=== PATIENT | female | born 1955 | race Caucasian/White ===

== ENCOUNTER 2017-12-30 10:34 | Outpatient (REF) | payer BC, SELFPAY ==
[2017-12-30 21:20] LABS: Anion Gap 8.1 mmol/L (3-11); BUN 16 mg/dL (7-18); CO2 29.9 mmol/L (21.0-32.0); CREATININE 0.67 mg/dL (0.55-1.02); Calcium 9.3 mg/dL (8.5-10.1); Chloride 102 mmol/L (98-107); Cholesterol 215 mg/dL (50-200); Glucose 83 mg/dL (70-100); HDL Cholesterol 93 mg/dL (40-60); LDL CHOLESTEROL 110 mg/dL (<100); Sodium 140 mmol/L (136-145); Triglyceride 74 mg/dL (30-150)
== END 2017-12-30 10:54 ==
LOC: NCHCN 10:34
PROVIDERS: PCP Internal Medicine; Visit Provider Family Medicine
DX: Z00.00 Encounter for general adult medical examination without abnormal findings (principal); Z13.220 Encounter for screening for lipoid disorders; Z13.228 Encounter for screening for other metabolic disorders
CPT/HCPCS: 80048; 80061; 83721

== ENCOUNTER 2018-01-19 00:29 | Outpatient (CLI) | payer BC, SELFPAY ==
--- NOTE | 2018-01-19 07:52 | DI.MAMMO_ITS ---
SYMPTOM/DIAGNOSIS: SCREENING, YEARLY. Z12.31 BILATERAL SCREENING MAMMOGRAM: Mammograms were interpreted according to the usual protocol including computer analysis with CAD system, tomosynthesis and C view imaging. Comparison is made with exams from 2014 through 2016. The breasts are composed of heterogeneously dense fibroglandular tissue, breast density Category C. No suspicious masses or suspicious microcalcifications are seen. There has been no significant change. IMPRESSION: Category 1-C, negative mammogram. Yearly screening mammography is recommended. [facility] ASSESSMENT OF FINDINGS: Negative. Category 1. Patient will receive a letter notifying them of these results. Bi-RADS category C. The breasts are heterogeneously dense, which may obscure small masses.
== END 2018-01-19 00:49 ==
PROVIDERS: PCP Family Medicine; Visit Provider Family Medicine
DX: Z12.31 Encounter for screening mammogram for malignant neoplasm of breast (principal)
CPT/HCPCS: 77063; 77067

== ENCOUNTER 2019-08-10 01:53 | Outpatient (CLI) | payer BC, SELFPAY ==
--- NOTE | 2019-08-10 | DI.MAMMO_ITS ---
EXAM: MAMMO SCREENING CLINICAL HISTORY: YEARLY, SCREENING, Z12.31 TECHNIQUE: Mammograms were interpreted according to the usual protocol including computer analysis w [employer] system, tomosynthesis and C-view imaging. COMPARISON: FINDINGS: The breasts are heterogeneously dense. No dominant mass or clumped microcalcification is identified in either breast. The current examination is compared with previous examinations including January 2018 and there has been no gross interval change in appearance in comparison with the prior studies. IMPRESSION: No specific evidence of malignancy at this time. Routine screening examinations are suggested at yea rly intervals in this age group according to the ACS ACR guidelines. BI-RADS Category 1 - Negative Breast Density - Category C - Heterogeneously dense
== END 2019-08-10 02:13 ==
PROVIDERS: PCP Family Medicine; Visit Provider Family Medicine
DX: Z12.31 Encounter for screening mammogram for malignant neoplasm of breast (principal)
CPT/HCPCS: 77063; 77067

== ENCOUNTER 2020-06-11 21:24 | Outpatient (REF) | payer BC, SELFPAY ==
[2020-06-11 20:05] LABS: Absolute Basophil Count 0.03 10^3/uL (0.0-0.2); Absolute Eosinophil Count 0.05 10^3/uL (0.0-0.7); Absolute Lymphocyte Count 1.36 10^3/uL (1.2-3.4); Absolute Monocyte Count 0.38 10^3/uL (0.1-0.8); Absolute Neutrophil Count 1.35 10^3/uL (1.2-6.7); Basophils % 0.9; Eosinophils % 1.6; HCT 35.6 % (36.0-46.0); HGB 11.6 g/dL (11.2-15.7); Lymphocytes % 42.9; MCH 28.9 pg (27.0-33.0); MCHC 32.6 % (32.0-36.0); MCV 88.8 fL (80-95); MPV 11.1 fL (8.0-11.0); Neutrophils % 42.6; Nucleated RBC 0 %; Platelet Count 231 10^3/uL (130-400); RBC 4.01 10^6/uL (3.93-5.22); RDW 12.7 % (11.7-14.6); RDW-SD 41.7 fL; WBC 3.17 10^3/uL (4.4-10.8)
[2020-06-11 20:21] LABS: ALT 27 U/L (14-59); AST 19 U/L (15-37); Alkaline Phosphatase 115 U/L (46-116); Anion Gap 6.9 mmol/L (3-11); BUN 9 mg/dL (7-18); Bilirubin, Total 0.4 mg/dL (0.2-1.0); CO2 29.1 mmol/L (21.0-32.0); CREATININE 0.6 mg/dL (0.55-1.02); Calcium 9.4 mg/dL (8.5-10.1); Chloride 102 mmol/L (98-107); Glucose 85 mg/dL (74-106); Potassium 4.1 mmol/L (3.5-5.1); Sodium 138 mmol/L (136-145); TSH (W/Ref FT4) 1.54 uIU/mL (0.36-3.74); Total Protein 7.1 g/dL (6.4-8.2)
[2020-06-11 20:32] LABS: D-Dimer 415 ng/mlFEU (<500)
== END 2020-06-11 21:25 | disposition home or self-care (01) ==
LOC: NCHCN 21:24
PROVIDERS: PCP Family Medicine; Visit Provider Nurse Practitioner Family
DX: R06.09 Other forms of dyspnea (principal)
CPT/HCPCS: 80053; 84443; 85025; 85379

== ENCOUNTER 2021-03-24 16:02 | Outpatient (REF) | payer MEDICARE, BC, SELFPAY ==
[2021-03-24 17:57] LABS: Anion Gap 8.6 mmol/L (3-11); BUN 22 mg/dL (7-18); CO2 27.4 mmol/L (21.0-32.0); CREATININE 0.7 mg/dL (0.55-1.02); Calcium 8.8 mg/dL (8.5-10.1); Calculated LDL 110 mg/dL (<100); Chloride 105 mmol/L (98-107); Cholesterol 216 mg/dL (<200); Glucose 79 mg/dL (74-106); HDL Cholesterol 95 mg/dL (40-60); Potassium 4.2 mmol/L (3.5-5.1); Sodium 141 mmol/L (136-145); Triglyceride 56 mg/dL (<150)
== END 2021-03-24 16:03 | disposition home or self-care (01) ==
LOC: NCHCN 16:02
PROVIDERS: PCP Family Medicine; Visit Provider Family Medicine
DX: Z00.00 Encounter for general adult medical examination without abnormal findings (principal); Z13.220 Encounter for screening for lipoid disorders
CPT/HCPCS: 80048; 80061

== ENCOUNTER 2021-04-11 02:55 | Outpatient (CLI) | payer MEDICARE, BC, SELFPAY ==
--- NOTE | 2021-04-11 | DI.DEXA_ITS ---
Exam(s) XR DEXA BONE DENSITY W/WO PAULINO EXAM: XR DEXA BONE DENSITY W/WO PAULINO CLINICAL HISTORY: SCREENING FOR OSTEOPOROSIS IN POSTMENOPAUSAL WOMAN,Z78.00,Z00.00,PREVENTATI TECHNIQUE: Routine DEXA evaluation of the lumbar spine, hip, or forearm. COMPARISON: No exams were available for comparison FINDINGS: Performed on a Hologic unit. Lateral image: No compression fracture evident. Lumbar Spine total T-score: -5.3 Hip total T-score:-3.2 Independent reading at the level of the femoral neck yields at T-score of -3.2. Forearm total T-score: -4.7 IMPRESSION: Bone mineral density measures in the osteoporosis range. Fracture risk is high. Note: Any spine fracture indicates 5x risk for subsequent spine fracture and 2x risk for subsequent h ip fracture. World Health Organization criteria for BMD interpretation classify patients: Normal...... T- Score at or above -1.0 Osteopenic... T- Score between -1.0 and -2.5 Osteoporosis... T-Score at or below -2.5
--- NOTE | 2021-04-11 | DI.MAMMO_ITS ---
Exam(s) MAMMO SCREENING EXAM: MAMMO SCREENING CLINICAL HISTORY: SCREENING, [facility], Z00.00,Z12.31. TECHNIQUE: Bilateral full field digital CC and MLO mammographic images were obtained with 3D tomosyn thesis and utilizing computer aided detection (CAD). COMPARISON: Prior mammograms were reviewed, the most recent being July 2019. FINDINGS: Fibroglandular tissue pattern is again noted be moderately dense, this somewhat decreasing the sensit ivity of the mammogram for finding hidden underlying lesions. There are no CAD designations. Laterally in the left breast there is benign-appearing well-defined oval nodular density again noted, measuring 6 by 4 millimeters and located 5-6 cm in from the nipple. No new spiculated masses nor malignant-appearing microcalcification in either breast. There is no significant architectural distortion nor skin thickening-retraction. IMPRESSION: Dense bilateral fibroglandular tissue. Stable benign appearing finding. No radiographic evidence of malignancy BI-RADS Category 2 - Benign Findings Breast Density - Category C - Heterogeneously dense Breast density Category C or D implies that the patient has dense breast tissue. Dense breast tissue can make it harder to find cancer on a mammogram. Dense breast tissue is also associated with an incr eased risk of breast cancer. This information about the result of the mammogram report was provided to the patient to raise their awareness. Use this report when you speak with the patient about their risks for breast cancer, which includes their family history. At that time, you may recommend additional screening tests (Ultrasoun d or MRI) as these tests may add significant information. A negative radiographic report should not delay biopsy if a dominant or clinically suspicious mass is present. Up to ten percent of cancers are not identified on mammography. A negative report may reinforce clinical impression. Adenosis and dense breasts may obscure an underlying neoplasm. False positive reports average 6 to 10%. Patient will receive a letter notifying them of these results.
== END 2021-04-11 03:15 ==
PROVIDERS: PCP Family Medicine; Visit Provider Family Medicine
DX: Z12.31 Encounter for screening mammogram for malignant neoplasm of breast (principal); N60.82 Other benign mammary dysplasias of left breast; M81.0 Age-related osteoporosis without current pathological fracture; Z78.0 Asymptomatic menopausal state
CPT/HCPCS: 77063; 77067; 77080

== ENCOUNTER 2021-04-24 18:07 | Outpatient (REF) | payer MEDICARE, BC, SELFPAY ==
[2021-04-24 21:29] LABS: Vitamin D 25 Total 84.6 ng/mL (30-100)
== END 2021-04-24 18:08 | disposition home or self-care (01) ==
LOC: NCHCN 18:07
PROVIDERS: PCP Family Medicine; Visit Provider Family Medicine
DX: M81.0 Age-related osteoporosis without current pathological fracture (principal)
CPT/HCPCS: 82306

== ENCOUNTER 2021-04-30 20:45 | Outpatient (REF) | payer MEDICARE, BC, SELFPAY | END 2021-04-30 20:46 | disposition home or self-care (01) | LOC: NCHCN 20:45 | PROVIDERS: PCP Family Medicine; Visit Provider Internal Medicine | DX: R30.0 Dysuria (principal) | CPT/HCPCS: 87086 ==

== ENCOUNTER 2021-11-05 02:56 | Outpatient (CLI) | payer MEDICARE, BC, SELFPAY ==
[2021-11-05 09:04] LABS: ALT 30 U/L (14-59); AST 20 U/L (15-37); Alkaline Phosphatase 119 U/L (46-116); Anion Gap 6.4 mmol/L (3-11); BUN 11 mg/dL (7-18); Bilirubin, Total 0.5 mg/dL (0.2-1.0); CO2 30.6 mmol/L (21.0-32.0); CREATININE 0.7 mg/dL (0.55-1.02); Calcium 9.4 mg/dL (8.5-10.1); Chloride 100 mmol/L (98-107); Estimated GFR 94.73 (mL/min/1.73m2); Glucose 86 mg/dL (74-106); PHOSPHORUS 4.6 mg/dL (2.6-4.7); Sodium 137 mmol/L (136-145); Total Protein 7.9 g/dL (6.4-8.2)
[2021-11-06 05:46] LABS: Vitamin D 25 Total 74.3 ng/mL (30-100)
[2021-11-06 11:14] LABS: Parathyroid Hormone,Intact 30 pg/mL (19-88)
[2021-11-10 12:22] LABS: IgA 232 mg/dL (85-499); Interpretation (See Note); Tissue Transglutaminase IgA <1.2 U/mL (<4.0)
== END 2021-11-05 02:57 | disposition home or self-care (01) ==
LOC: LBO 02:56
PROVIDERS: PCP Family Medicine; Visit Provider Internal Medicine
DX: M81.0 Age-related osteoporosis without current pathological fracture (principal)
CPT/HCPCS: 36415; 80053; 82306; 82784; 83516; 83970; 84100

== ENCOUNTER 2021-11-07 12:06 | Outpatient (REF) | payer MEDICARE, BC, SELFPAY ==
[2021-11-07 13:00] LABS: Creatinine,24hr Ur 0.62 g/24hr (0.60-1.80); Total Volume 1900 ml
[2021-11-08 09:21] LABS: Calcium Urine 6.7 mg/dL (See Note); Calcium Urine 24 hr 127 mg/24hrs (100-300); Timed Urine Volume 1900 mL
== END 2021-11-07 12:07 | disposition home or self-care (01) ==
LOC: LBN 12:06
PROVIDERS: PCP Family Medicine; Visit Provider Internal Medicine
DX: M81.0 Age-related osteoporosis without current pathological fracture (principal)
CPT/HCPCS: 81050; 82340; 82570

== ENCOUNTER 2022-03-27 21:13 | Emergency (ER) | payer MEDICARE, BC, SELFPAY ==
--- NOTE | 2022-03-27 21:15 | DI.RAD_ITS ---
Exam(s) XR HUMERUS RT EXAM: XR HUMERUS RT CLINICAL HISTORY: pain s/p fall. TECHNIQUE: 2D digital imaging was performed. COMPARISON: No exams were available for comparison FINDINGS: Two views: No evidence of fracture nor dislocation of the humerus. No osseous lesions. No radiopaque foreign b marysol. IMPRESSION: No significant findings on these two views of the right humerus. DATA REPOSITORY: RADIATION DOSE DELIVERED:
[2022-03-27 21:16] VITALS: BP 150/79; PULSE 61; RESP 15; TEMP 36.5; O2SAT 98
--- NOTE | 2022-03-27 21:24 | DI.RAD_ITS ---
Exam(s) XR FOREARM RT EXAM: XR FOREARM RT CLINICAL HISTORY: pain s/p fall. TECHNIQUE: 2D digital imaging was performed. COMPARISON: CR,XR XR HUMERUS RT from 03/27/2022 FINDINGS: Two views: There is a nondisplaced fracture of the distal radius. No fractures more proximally and no fractures in the ulna evident. No obvious elbow joint effusion. IMPRESSION: Distal radius fracture. DATA REPOSITORY: RADIATION DOSE DELIVERED:
--- NOTE | 2022-03-27 21:24 | DI.RAD_ITS ---
Exam(s) XR WRIST RT COMPLETE EXAM: XR WRIST RT COMPLETE CLINICAL HISTORY: pain s/p fall. TECHNIQUE: 2D digital imaging was performed. COMPARISON: No exams were available for comparison FINDINGS: 3 views There is a nondisplaced transverse fracture in the distal radius. No displacement. No angulation. No significant ulnar variance. No obvious fracture of the ulnar styloid. No scaphoid fracture seen. Scapholunate distance normal. Incidentally noted are 2 small adjacent densities which are adjacent to the lateral aspect of the rad ial styloid, not adjacent to the fracture site. Possibly significant. Cannot exclude foreign body. IMPRESSION: Nondisplaced fracture of the distal radius, as described above. Other small adjacent osteophytic densities against the radial styloid as described above. DATA REPOSITORY: RADIATION DOSE DELIVERED:
--- NOTE | 2022-03-27 21:25 | W.ED.GENAD ---
Discharge Plan Disposition Patient Disposition: Home Condition: Stable Discharge Details Clinical Impression: Fracture of right radius Primary Care Provider: Hollie Brizuela ED Provider: Bridger Lopez Home Meds and New Rx's Prescriptions: Continued Fish Oil 1 EACH capsule 1 ea PO ASTRAGALUS 470 MG capsule 470 mg PO multivitamin [Daily Multi-Vitamin] 1 EACH tablet 1 ea PO cholecalciferol (vitamin D3) [Vitamin D3] 2,000 UNIT capsule 2,000 unit PO DAILY Algae Based Calcium 333.33 mg-6.67 mcg-32 mg Tablet 2 tab PO BID Discharge Instructions Instructions: Arm Fracture in Adults (ED) Additional Instructions: you have a nondisplaced broken bone in the radius bone near your wrist call orthopedics Wednesday to arrange follow up return to the emergency department if you feel more ill or have severe worsening of your pain Referrals: Holden Angulo MD [ [facility] STAFF PHYSICIAN] - Medical Decision Making 66 yo female with hx of osteoporosis comes in after she fell hurting her right arm. [place] ice slide. While she was about to sit her legs slipped out from under her and she landed on her buttocks and her right arm was outstretched to brace herself. She denies hitting her head or loc and no preceding symptoms to the fall. She has no head pain, neck pain, chest pain, abdomen pain, back pain. She has some pain in the right wrist,rightforearm and right mid humerus without a visible or palpable deformity. She has normal rom of all joints of the arm, intact sensation and pulses. No tenderness in the hand, mild tenderness of the radial surfiace of the wrist, mid forearm and mid humerus. No tenderness in the shoulder nor elbow. Suspect contusion but will xray the humerus, forearm and wrist. imaging shows transverse nondisplaced distal radius fracture. They note radiodensities as well and note correlate with any concern for foregin bodies, there is no break in the skin so suspect soft tissue calcification. She is stable, placed in universal splint and will refer to orthopedics. Return precautions given Differential Diagnosis Differential Diagnosis: contusion, fracture Imaging Data Radiologic Study: Attestation: I personally reviewed and interpreted this imaging study as follows: Imaging: X-Ray Radiologist's impression: IMPRESSION: 1. Distal right radial fracture. 2. In the soft tissues adjacent to the distal right radius, series 3, image 1, two 1.5 mm radiodensities are identified which may represent soft tissue calcifications but should be correlated with any concern for foreign body. Bony fragments are thought to be less likely as they are not adjacent to the fracture line. Radiologic Study #2: Attestation: I personally reviewed and interpreted this imaging study as follows: Imaging: X-Ray Radiologist's impression: no acute findings humerus xray Radiologic Study #3: Attestation: I personally reviewed and interpreted this imaging study as follows: Imaging: X-Ray Radiologist's impression: radius fracture on forearm xray HPI General Mode of arrival: ambulatory. Date/Time Provider Initiated Documentation: 03/27/22 21:18. Limitations to Documentation: no limitations. Information obtained by: patient. History of Present Illness 66 year old F presents to the emergency department with the chief complaint of right arm pain, described as moderate, Quality is described as aching, and is localized to the left and upper extremity. Patient reports no radiation. Patient started experiencing this hour(s) (1) and it has been constant. Rest improves symptom(s), Movement worsens symptoms . Patient notes no other symptoms.. Patient did receive the following treatments prior to arrival, none Related Data Home Medications Medication Instructions Recorded Confirmed Astragalus 470 mg PO 09/27/12 multivitamin (Daily Multi-Vitamin 1 ea PO 09/27/12 tablet) omega-3 fatty acids-fish oil 300 1 ea PO 09/27/12 mg-500 mg capsule (Fish Oil) cholecalciferol (vitamin D3) 50 2,000 unit PO DAILY 10/04/13 03/27/22 mcg (2,000 unit) capsule (Vitamin D3) calcium 333.33 mg-vit D3 6.67 2 tab PO BID 03/27/22 03/27/22 mcg-magnes 32 mg-vit K2-min-herb tablet (Algae Based Calcium) Allergies Allergy/AdvReac Type Severity Reaction Status Date / Time erythromycin base Allergy Intermediate rash,vomiti Unverified 03/27/22 21:20 ng General Stated Complaint: Orthopedic KENYA: 4 Review of Systems All systems reviewed & are unremarkable except as noted in HPI and below Constitutional Constitutional: Denies chills, Denies fever(s) and Denies weakness Cardiovascular Cardiovascular: Denies chest pain and Denies dyspnea Respiratory Respiratory: Denies cough and Denies dyspnea Gastrointestinal Gastrointestinal: Denies abdominal pain, Denies nausea and Denies vomiting Neurologic Neurologic: Denies weakness PFSH All Active Problems (Updated 03/27/22 @ 22:28 by Bridger Lopez MD) Fracture of right radius (Acute) Medical History (Updated 03/27/22 @ 22:28 by Bridger Lopez MD) Anemia during pregnancies Blood clots 1979 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 Surgical History (Updated 12/01/17 @ 14:34 by [employer] 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 Family History (Updated 07/09/13 @ 21:16 by ) Other Diabetes Heart disease Hyperlipidemia Osteoporosis Social History Smoking/Tobacco Use Status: Never Smoking risk assessment performed?: Yes Substance use type: does not use Exam Const General: no acute distress Orientation: alert HENMT Head: normal to inspection Ears: external ears normal General nose exam: external nose normal Mouth: moist mucous membranes Eyes General: appearance normal, both eyes and all related structures Neck Neck: normal visual inspection Resp Effort & Inspection: normal respiratory effort and able to speak in complete sentences Cardio Rate: regular rate Skin General skin exam: no rashes or lesions noted Neuro General: patient alert and patient oriented x3 Extrem General: normal to inspection and capillary refill normal Psych Mental Status: mental status grossly normal Course Vital Signs Vital signs: Vital Signs Temperature 36.5 C 03/27/22 21:16 Pulse 61 03/27/22 21:16 Respiratory Rate 15 03/27/22 21:16 Blood Pressure 150/79 H 03/27/22 21:16 Pulse Oximetry 98 03/27/22 21:16 Temperature 36.5 C 03/27/22 21:16 Temperature Source Oral 03/27/22 21:16 Pulse 61 03/27/22 21:16 Respiratory Rate 15 03/27/22 21:16 Respiratory Effort Normal 03/27/22 21:16 Blood Pressure 150/79 H 03/27/22 21:16 Blood Pressure Position Sitting 03/27/22 21:16 Pulse Oximetry 98 03/27/22 21:16 Oxygen Delivery Method Room Air 03/27/22 21:16 Oxygen Flow Rate 0 03/27/22 21:16 Pain Level 8 03/27/22 21:16
[2022-03-27] MEDS: Acetaminophen 325 MG TAB 650 MG PO (21:29)
--- NOTE | 2022-03-27 22:17 | DI.VRAD_ITS ---
PROCEDURE INFORMATION: Exam: XR Right Humerus Exam date and time: 03/27/2022 9:45 PM Age: 66 years old Clinical indication: Injury or trauma; Fall; Blunt trauma (contusions or hematomas); Arm, upper; Right TECHNIQUE: Imaging protocol: Radiologic exam of the Right humerus. Views: 2 or more views. COMPARISON: No relevant prior studies available. FINDINGS: Bones/joints: No acute fracture identified. Soft tissues: No unusual soft tissue calcifications seen. IMPRESSION: 1. No acute fracture identified, right humerus. If symptoms persist or remain concerning, consider follow-up imaging in 7 days or alternative imaging modalities. Dictated and Authenticated by: Corinna Ventura MD. Ordering:VIMAL Sparks MD
--- NOTE | 2022-03-27 22:18 | DI.VRAD_ITS ---
PROCEDURE INFORMATION: Exam: XR Right Forearm Exam date and time: 03/27/2022 9:52 PM Age: 66 years old Clinical indication: Injury or trauma; Fall; Blunt trauma (contusions or hematomas); Arm, upper; Right TECHNIQUE: Imaging protocol: Radiologic exam of the Right forearm. Views: 2 views. COMPARISON: No relevant prior studies available. FINDINGS: Bones/joints: There is a transverse fracture of the distal right radius. Soft tissues: No unusual soft tissue calcifications. IMPRESSION: 1. Fracture of the distal right radius. Dictated and Authenticated by: Corinna Ventura MD. Ordering:VIMAL Sparks MD
--- NOTE | 2022-03-27 22:20 | DI.VRAD_ITS ---
PROCEDURE INFORMATION: Exam: XR Right Wrist Exam date and time: 03/27/2022 9:53 PM Age: 66 years old Clinical indication: Injury or trauma; Fall; Blunt trauma (contusions or hematomas); Wrist; Right TECHNIQUE: Imaging protocol: Radiologic exam of the Right wrist. Views: 3 or more views. COMPARISON: CR XR FOREARM RT 03/27/2022 9:52 PM FINDINGS: Bones/joints: There is a transverse fracture of the distal right radius. Soft tissues: In the soft tissues adjacent to the distal right radius, series 3, image 1, two 1.5 mm radiodensities are identified which may represent soft tissue calcifications but should be correlated with any concern for foreign body. Bony fragments are thought to be less likely as they are not adjacent to the fracture line. IMPRESSION: 1. Distal right radial fracture. 2. In the soft tissues adjacent to the distal right radius, series 3, image 1, two 1.5 mm radiodensities are identified which may represent soft tissue calcifications but should be correlated with any concern for foreign body. Bony fragments are thought to be less likely as they are not adjacent to the fracture line. Dictated and Authenticated by: Corinna Ventura MD. Ordering:VIMAL Sparks MD
[2022-03-27 22:46] VITALS: BP 122/75; PULSE 65; RESP 20; O2SAT 96
== END 2022-03-27 22:47 | disposition home or self-care (01) ==
PROVIDERS: Emergency Provider Emergency Medicine; PCP Family Medicine
DX: S52.501A Unspecified fracture of the lower end of right radius, initial encounter for closed fracture (principal); W00.0XXA Fall on same level due to ice and snow, initial encounter
CPT/HCPCS: 99284; 73060; 73090; 73110; 99282

== ENCOUNTER 2022-04-13 10:22 | Outpatient (CLI) | payer MEDICARE, BC, SELFPAY ==
--- NOTE | 2022-04-13 08:45 | DI.RAD_ITS ---
Exam(s) XR WRIST RT LIMITED EXAM: XR WRIST RT LIMITED CLINICAL HISTORY: f/u R DISTAL RADIUS FX. TECHNIQUE: 2D digital imaging was performed of the right wrist. Two views were obtained. Scaphoid, PA, lateral and oblique views were obtained. COMPARISON: CR,XR XR WRIST RT COMPLETE from 03/27/2022 FINDINGS: BONES: There is again seen a fracture of the distal metaphysis of the right radius. Since the prior examination, fracture has undergone increased impaction. No bony destructive lesion is seen. JOINTS: The carpal bones are normally aligned. SOFT TISSUE: Normal. IMPRESSION: Increased impaction of the distal right metaphyseal radial fracture. DATA REPOSITORY: RADIATION DOSE DELIVERED:
== END 2022-04-13 10:23 | disposition home or self-care (01) ==
LOC: DIORS 10:22
PROVIDERS: PCP Family Medicine; Referring Provider Student in an Organized Health Care Education/Training Program; Visit Provider Physician Assistant
DX: S52.501A Unspecified fracture of the lower end of right radius, initial encounter for closed fracture (principal); W00.0XXA Fall on same level due to ice and snow, initial encounter
CPT/HCPCS: 99213; 73100

== ENCOUNTER 2022-04-16 06:09 | Day surgery (SDC) | payer MEDICARE, BC, SELFPAY ==
[2022-04-16] VITALS (9 sets, daily range): BP systolic 100–133; BP diastolic 60–86; PULSE 64–82; RESP 11–16; TEMP 36–36.5; O2SAT 95–98; BMI 19.4
--- NOTE | 2022-04-16 06:00 | W.PREOPHP ---
Assessment and Plan Assessment and plan (1) Fracture of right distal radius: Status: Acute Assessment and plan: Alicja is a 67-year-old active female who has lost reduction of her distal radius fracture. She has lost some the height but more importantly she has lost significant angulation on the lateral view. Dorsal angulation greater than 20 degrees has been shown with poor functional outcomes. 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 This was reviewed in detail by Kush San PA-C. I also reviewed this with her over the phone as well as this morning. My recommendation would be for operative fixation to improve the position of the fracture fragments and secured them with plate and screws. Repeat closed reduction is possible. However, being 3 weeks out, the likelihood of success is quite low. I reviewed the technical features of operative fixation of the right wrist fracture. I discussed the potential risk to include bleeding, infection, pain, stiffness, damage to nerves and vessels, damage to muscle and tendons, hardware prominence, hardware failure, tendon rupture. Despite these risks, she elects to proceed. History of Present Illness Narrative: Alicja is an active 67-year-old who unfortunately had a slip and fall while sliding down a hill. He landed onto an outstretched right hand. She was seen in the emergency department and diagnosed with a distal radius fracture which was relatively nondisplaced. She was placed into a removable splint at the time. She reports some pain within the forearm but very minimal pain at the level of the wrist. However, she presented to the office for a 2-week follow-up which showed significant impaction and loss of radial height as well as dorsal angulation. I was contacted by Kush San PA-C, to review the case and I recommended operative fixation of this fracture, especially given her hand dominance and active lifestyle. She has had controlled pain with ibuprofen. She denies any new trauma. She has no numbness or tingling. She has no chest pain or shortness of breath. She has no active medical issues. 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 Family History Other Diabetes Heart disease Hyperlipidemia Osteoporosis Social History Smoking/Tobacco Use Status: Never Smoking risk assessment performed?: Yes Alcohol Intake: current Alcohol Intake frequency: a few times a month Alcohol type: wine Substance use type: does not use Do you feel safe at home: Yes Do you feel safe in your relationship?: Yes Meds Allergies and Home Medications Allergies Allergy/AdvReac Type Severity Reaction Status Date / Time erythromycin base Allergy Intermediate rash,vomiti Unverified 04/16/22 06:33 ng Home Medications Medication Instructions Recorded Confirmed Type Astragalus 470 mg PO DAILY 09/27/12 04/16/22 History multivitamin (Daily Multi-Vitamin 1 ea PO DAILY 09/27/12 04/16/22 History tablet) omega-3 fatty acids-fish oil 300 1 ea PO DAILY 09/27/12 04/16/22 History mg-500 mg capsule (Fish Oil) cholecalciferol (vitamin D3) 50 2,000 unit PO DAILY 10/04/13 04/16/22 History mcg (2,000 unit) capsule (Vitamin D3) calcium 333.33 mg-vit D3 6.67 2 tab PO BID 03/27/22 04/16/22 History mcg-magnes 32 mg-vit K2-min-herb tablet (Algae Based Calcium) ashwagandha root extract 300 mg 300 mg PO DAILY 04/16/22 04/16/22 History capsule Exam Resp Auscultation: clear to auscultation bilaterally Cardio Rate: regular rate Rhythm: regular rhythm Extrem Other: Brief evaluation of the right hand shows no overlying skin changes except for mild ecchymosis volarly. Some swelling. EPL is intact. Sensation intact to light touch over the median, radial, ulnar nerve. Palpable radial pulse. Results Imaging Imaging Studies: Initial x-rays from the emergency department on March 27 were reviewed. These demonstrate a distal radius fracture of the right side. There may be some slight dorsal angulation on the lateral with buckling of the dorsal surface. However, no apparent intra-articular extension and no significant dorsal angulation, approximately neutral tilt. Radial clinician is preserved and there is no loss of radial height. Forearm x-rays as well reviewed and do not show any abnormalities of the forearm. No elbow effusion. Repeat x-rays of the right wrist from 13 April show the distal radius fracture which appears to be mostly extra-articular with loss of radial inclination, some loss of height and substantial dorsal tilt on the lateral view. There is some comminution seen in the dorsal surface of the distal radius. Dorsal angulation measures approximately 27 degrees if not closer to 30 degrees on the lateral view.
--- NOTE | 2022-04-16 07:07 | W.ANESPRE ---
General Info Date of Service Date Performed: 04/16/22 Height: 5 ft 2 in Weight: 48.2 kg Body Mass Index (BMI): 19.4 Surgical Procedure: Operation Date: 04/16/22 07:40 Proposed Procedure Side Surgeon p Wrist ORIF Distal Radius Right Holden Angulo MD Meds Allergies and Home Medications Allergies Allergy/AdvReac Type Severity Reaction Status Date / Time erythromycin base Allergy Intermediate rash,vomiti Unverified 04/16/22 06:33 ng Home Medication Medication Instructions Recorded Astragalus 470 mg PO DAILY 09/27/12 multivitamin (Daily Multi-Vitamin 1 ea PO DAILY 09/27/12 tablet) omega-3 fatty acids-fish oil 300 1 ea PO DAILY 09/27/12 mg-500 mg capsule (Fish Oil) cholecalciferol (vitamin D3) 50 2,000 unit PO DAILY 10/04/13 mcg (2,000 unit) capsule (Vitamin D3) calcium 333.33 mg-vit D3 6.67 2 tab PO BID 03/27/22 mcg-magnes 32 mg-vit K2-min-herb tablet (Algae Based Calcium) acetaminophen 500 mg tablet 500 mg PO Q6H PRN PRN pain #40 tabs 04/16/22 ashwagandha root extract 300 mg 300 mg PO DAILY 04/16/22 capsule hydrocodone 5 mg-acetaminophen 325 1 tab PO Q6H PRN pain #8 tabs 04/16/22 mg tablet ibuprofen 600 mg tablet 600 mg PO TID PRN pain #90 tabs 04/16/22 Current Visit Medications: Current Medications Generic Name Dose Route Start Last Admin Trade Name Freq PRN Reason Stop Dose Admin Ringer's Solution 1,000 mls @ 80 mls/hr 04/16/22 06:00 IV 05/15/22 23:59 INFUSION ANDREW Cefazolin Sodium/Dextrose 2 gm in 50 mls @ 100 mls/hr 04/16/22 06:00 Ancef Duplex IVPB 04/16/22 16:00 PREOP ANDREW IV Miscellaneous Supplies 1 each 04/16/22 06:00 Iv Access IV 05/15/22 23:59 DIRECTED ANDREW Sodium Chloride 0 ml 04/16/22 06:00 Normal Saline Flush 10 Ml Syr IV 05/15/22 23:59 PRN PRN Sodium Chloride 0 ml 04/16/22 06:00 Normal Saline 10 Ml Vial IJ 05/15/22 23:59 DIRECTED PRN Sterile Water 0 ml 04/16/22 06:00 Water,Injection,Sterile 10 Ml Vial IJ 05/15/22 23:59 DIRECTED PRN PFSH Active Problems Active Problems: Problem Status Onset Code Fracture of right distal radius [id number] Medical History Medical History Anemia during pregnancies Blood clots 1979 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 Surgical History Surgical History 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 Tobacco Smoking/Tobacco Use Status: Never Alcohol Alcohol Intake: current Alcohol intake frequency: a few times a month Alcohol type: wine Substance Use Substance use type: does not use Vital Signs and Lab Results Vital Signs Most Recent Vital Signs in EMR: Most Recent Vital Signs Temp Pulse Resp BP Pulse Ox 36.5 C 69 16 130/79 97 04/16/22 06:36 04/16/22 06:36 04/16/22 06:36 04/16/22 06:36 04/16/22 06:36 Lab Results Blood Type / Crossmatch: No Data to Display Complete Blood Count: No Data to Display Complete Metabolic Panel: No Data to Display Liver Function Panel: No Data to Display Coagulation Panel: No Data to Display Cardiac Panel: No Data to Display Arterial Blood Gas: No Data to Display Venous Blood Gas: No Data to Display Pancreas Panel: No Data to Display Thyroid Panel: No Data to Display Infectious Disease: No Data to Display Blood Cultures: No Data to Display Toxicology Panel: No Data to Display Anesthesia Assessment and Plan Anesthesia History Personal History: No History of Anesthesia Complications Family History: No Family History of Anesthesia Complications Exercise Tolerance Exercise Tolerance: Metabolic Equivalents>4 Pertinent Negatives Pertinent Negatives: No Symptoms of GERD, No Major Cardiovascular Symptoms or Complaints and No Major Pulmonary Symptoms or Complaints Cardiac & Pulmonary Exam Cardiac Exam: Normal S1/S2 Heart Sounds Pulmonary Exam: Clear Bilateral Breath Sounds Implantable Cardiac Device Does patient have a Pacemaker or an ICD?: No Airway Exam Known Difficult Airway: No Mallampati Class: 1 Mouth Opening: Normal (> 3cm) Thyromental Distance: Greater than 3 cm Neck Range of Motion: Full ROM Neck Circumference: Normal Teeth Condition: Normal Dentition ASA Classification ASA Score: ASA 2 Emergency Case?: No NPO Status NPO Status: NPO Clears >2 hours, Solids >8 hours Anesthesia Plan Resuscitation Status: Full Code Anesthesia Technique: General Anesthesia Airway Planned: LMA Pain Management: Surgeon and patient request nerve block Monitors Used: Standard Monitors
--- NOTE | 2022-04-16 07:12 | W.PM.DSUDISC ---
Date of service: 04/16/22 Time of Service: 07:12 Discharge Plan Disposition Patient Disposition: Home Condition: Good Discharge Details Reason For Visit: Right Distal Radius Fracture Attending Provider: Holden Angulo Primary Care Provider: Hollie Brizuela Home Meds and New Rx's Prescriptions: New hydrocodone-acetaminophen 5-325 mg tablet 1 tab PO Q6H PRN (Reason: pain) Qty: 8 0RF acetaminophen 500 mg tablet 500 mg PO Q6H PRN PRN (Reason: pain) Qty: 40 3RF ibuprofen 600 mg tablet 600 mg PO TID PRN (Reason: pain) Qty: 90 3RF Continued Fish Oil 1 EACH capsule 1 ea PO DAILY ASTRAGALUS 470 MG capsule 470 mg PO DAILY multivitamin [Daily Multi-Vitamin] 1 EACH tablet 1 ea PO DAILY cholecalciferol (vitamin D3) [Vitamin D3] 2,000 UNIT capsule 2,000 unit PO DAILY ashwagandha root extract 300 mg Capsule 300 mg PO DAILY Algae Based Calcium 333.33 mg-6.67 mcg-32 mg Tablet 2 tab PO BID Discharge Instructions Additional Instructions: Wrist Fracture Fixation Discharge Instructions Activity: You should keep the hand/wrist elevated as much as possible for the first few days. You may use the other fingers as tolerated but avoid trying to do too much too soon. You may perform light activities with the splint in place. Dressing/Cast: Your splint should stay in place at all times. Do NOT get it wet. You may loosen the KLARISSA wrap if you feel it is too tight and then rewrap more loosely. Medications: - You should take Tylenol and Ibuprofen for baseline pain control. - You have been prescribed a stronger pain medication, Hydrocodone, for breakthrough pain. - You may apply ice over the wrist, just double bag so it doesn't get wet. Follow-up: 10-14 days for splint removal. Bring your brace to that appointment. Referrals: Holden Angulo MD [ [facility] STAFF PHYSICIAN] - Equipment/Supplies: Splint Activity:: Elevate Remove Dressings/Wound Care:: Do Not Remove Shower/Bathe:: Cover Diet:: As Tolerated Discharge Orders Discharge Orders: Discharge Order (Routine); Ordered 04/16/22 Ordered By: Holden Angulo DS: Diagnosis Discharge Diagnosis (1) Fracture of right distal radius: Status: Acute
--- NOTE | 2022-04-16 07:15 | DI.RAD_ITS ---
Exam(s) XR WRIST RT COMPLETE EXAM: XR WRIST RT COMPLETE CLINICAL HISTORY: fractured right wrist TECHNIQUE: 2D and realtime digital imaging was performed. CONTRAST MATERIAL: Refer to procedure report. COMPARISON: CR,XR XR WRIST RT COMPLETE from 03/27/2022 FINDINGS: Fluoroscopy was provided for Dr. Angulo during the performance of a internal fixation of the dista l radial fracture. Please refer to the procedure report for complete details. Ka,r=0.50 mGy IMPRESSION: RADIATION DOSE DELIVERED:
[2022-04-16] MEDS: Lactated Ringers 1,000 ML 80 ML IV (07:20)
[2022-04-16] MEDS: ceFAZolin 2 GM/50 ML BAG IVPB (07:29)
--- NOTE | 2022-04-16 07:49 | W.ANESNERVE ---
Nerve Block Single Injection Procedure Date and Time Date Performed: 04/16/22 Procedure Start: 07:20 Location Where Procedure Performed Procedure Location: Day Surgery Unit Reason Performed: Postoperative Analgesia Requesting Provider: Holden Angulo Timeout Performed Timeout Performed: Yes Monitoring Used ECG, Blood Pressure, SpO2, ETCO2 and See EMR for corresponding vital signs Sterility Sterility: Hand Hygiene, Surgical Cap, Surgical Mask, Sterile Gloves and Chlorhexidine Sedation Given During Procedure Sedation Given (Indicate Dose Given): Versed IV Dose:: 1mg Patient Mental Status Patient Mental Status: Awake Nerve Block 1st Nerve Block: Laterality: Right Block Type: Supraclavicular Ultrasound Image Saved?: Yes Needle / Catheter Used: 80mm SonoPlex II Local Anesthetic Bolus (Indicate Dose Given): Lidocaine used for local infiltration of skin, Injected in 3-5ml increments after negative blood aspiration, Bupivacaine 0.5% Dose:: 10ml and Exparel Dose:: 10ml Additives (Indicate Dose Given): None Ultrasound: Sterile probe cover and gel used Nerve Stimulator: Not Used Paresthesia: None Procedure Tolerated: No Complications and Patient tolerated well Procedure Outcome: Successful Performed By: Juan J Pinzon
[2022-04-16] MEDS: Bupivacaine 0.25% Pres-Free W/EPI 30 ML VIAL (07:52)
--- NOTE | 2022-04-16 09:11 | W.ANESPOSTOP ---
Postoperative Evaluation Date, Time and Location Date Performed: 04/16/22 Time Performed: 09:11 Patient Location: PACU Vital Signs Most Recent Imported Vital Signs: Most Recent Vital Signs Temp Pulse Resp BP Pulse Ox 36.5 C 82 13 113/63 97 04/16/22 08:52 04/16/22 08:52 04/16/22 08:52 04/16/22 08:52 04/16/22 08:52 Pain Score Most Recent Pain Score: Most Recent Pain Score Pain Level 0 04/16/22 08:52 Assessment Mental Status: Awake (Alert & Oriented to Patient Baseline) Airway and Respiratory Function: Patent airway with normal (patient baseline) respiratory exam Cardiovascular Function: Hemodynamically Stable Hydration Status: Adequately Hydrated Nausea & Vomiting: No Nausea or Vomiting Pain: Pt. Denies Any Pain Peripheral Nerve Block: Regional nerve block not resolved at time of post operative discharge (Unable to move fingers. Explained motor should return in 24 hours.)
--- NOTE | 2022-04-16 17:06 | W.PM.OP ---
Date of service: 04/16/22 Time of Service: 08:45 Operative Note Operative Note DATE OF PROCEDURE: 04/16/22 PRE-OP DIAGNOSIS: Right Distal Radius Fracture POST-OP DIAGNOSIS: same PROCEDURE: Open Reduction and Internal Fixation of Right Distal Radius, Extra-articular SURGEON: Holden Angulo HAT FORMING MACHINE FEEDER: Beata Lazar ANESTHESIA TYPE: General LMA/ETT and Primary Nerve Block Refer to Anesthesia Record ESTIMATED BLOOD LOSS: 10 PATHOLOGY: none sent TOURNIQUET TIME: 38 COMPLICATIONS: None Patient was transported to: PACU Patient's condition: stable Implants: Synthes Variable Angle Distal Radius Plate - Narrow, 3 hole Indications: Alicja is a 67 year old female who was seen for a distal radius fracture which was nondisplaced but unfortunately displaced. Given the deformity, displacement, fracture pattern, and effect on daily function, I recommended surgical fixation. I reviewed the risk of the procedure to include bleeding, infection, stiffness, damage to nerves and vessels, damage to muscles and tendons, malunion, nonunion, hardware prominence, tendon rupture, need for repeat procedures. Despite these risks, the patient elected to proceed. Findings: There is a distal radius fracture which was extra-articular. There was early healing which was released through manipulation. It was then reduced and fixed with a Synthes volar locking plate. Procedure Description: Alicja was greeted in the preoperative holding area. The correct patient and site was confirmed and marked. The history and physical was updated. The consent was reviewed the patient and signed. A supraclavicular block was placed under ultrasound guidance by anesthesia in the day surgery unit. The patient was taken to the operating room and placed in the supine position. All bony problems were well-padded. The right arm was placed onto a radiolucent hand table. A nonsterile tourniquet was placed high up on the arm. Prophylactic antibiotics in the form of cefazolin were administered. The right arm was prepped with ChloraPrep and draped in a standard fashion. A timeout was performed for safe surgery. The limb was exsanguinated with an Esmarch and a tourniquet was inflated to 250 mmHg or stay for 30 minutes. A standard longitudinal incision was made overlying the flexor carpi radialis tendon starting at the distal wrist crease and moving proximally. The skin was incised sharply. The flexor carpi radialis tendon and its sheath is identified. The sheath was opened. The tendon was moved ulnarly and the floor of the sheath was incised. Blunt dissection the flexor pollicis longus muscle belly and tendon were also made radially exposing the pronator quadratus and the distal radius. The printer quadratus was elevated with an ulnar-based flap. This exposed the volar distal radius and the fracture. A hernandez elevator was used for full exposure of the volar surface of the distal radius. The primary fracture line was exposed. The fracture was not easily mobile. Using a series of elevators, curettes, and knife, the fracture was fully debrided of any fibrous tissue and callus formation. I then used manipulation of the fracture fragments to free up any further adhesions and early callus of the fracture fragments. Inserting from a volar to dorsal direction, I used a freer elevator to help mobilize the fragments. There is a primary extra-articular fracture. After fully freeing up these adhesions and early healing, I then performed a closed reduction. Using gentle traction and fracture manipulation, this reduction was held. Fluoroscopic images were used to confirm adequate reduction. A K wire was placed to the radial styloid and into the proximal aspect of the radius holding the reduction in place. An appropriately sized Synthes volar locking plate was then placed onto the bony surface of the distal radius, narrow 3-hole plate. This was then held in place with a single K wire through the distal end. Fluoroscopy was once again used to confirm appropriate positioning of the plate on the distal radius. A single nonlocking screw was placed to the distal portion of the plate securing the plate against the bone of the distal radial metaphysis. Once again, the plate was evaluated to make sure it was aligned appropriately. The single screw was also checked to make sure it was in appropriate positioning for trajectory of future screws. The remainder of the screws within the volar locking plate were filled with locking screws. These were made sure not to penetrate the dorsal cortex. Once these were applied the proximal portion of the plate was further reduced down onto the shaft, which further reduce the distal segment. Fluoroscopy was then used against confirm appropriate reduction. Nonlocking screws were placed within the 3 shaft screw holes. The initial 2.4 mm nonlocking screw was long and this was replaced with a shorter locking screw. Final x-rays were obtained which demonstrated adequate reduction and positioning of hardware. The dorsal sunrise view was also obtained to ensure correct sizing of screws. The wound was then thoroughly irrigated. The pronator quadratus was reapproximated with a 0 Vicryl. The tourniquet was released and there was no notable vascular injury. The fingers were warm and well-perfused. The deep dermal layer was closed with a 2-0 Vicryl. The skin was closed with a running, subcuticular 4-0 Monocryl suture. The wound was dressed with Xeroform, 4 x 4's, web roll. A short arm splint was applied. At the end the case all counts are correct. Patient was transferred back to the PACU in stable condition.
== END 2022-04-16 10:45 | disposition home or self-care (01) ==
PROVIDERS: PCP Family Medicine; Visit Provider Student in an Organized Health Care Education/Training Program
PROC: (CPT 25607; principal; 2022-04-16 07:30)
DX: S52.501A Unspecified fracture of the lower end of right radius, initial encounter for closed fracture (principal); W19.XXXA Unspecified fall, initial encounter
CPT/HCPCS: 25607; C1889; 76000; 76942; 73110; J0690; J1100; J1885; J2250; J2405

== ENCOUNTER 2022-04-27 10:14 | Outpatient (CLI) | payer MEDICARE, BC, SELFPAY ==
--- NOTE | 2022-04-27 10:00 | DI.RAD_ITS ---
Exam(s) XR WRIST RT COMPLETE EXAM: XR WRIST RT COMPLETE CLINICAL HISTORY: S/P ORIF R WRIST. TECHNIQUE: 2D digital imaging was performed. Three images were obtained. AP, lateral and oblique vi ews were obtained. COMPARISON: CR XR WRIST RT COMPLETE from 04/16/2022 FINDINGS: BONES: There are stable post operative changes present. No new fracture or dislocation. JOINTS: The joint spaces are well maintained. SOFT TISSUE: Normal. IMPRESSION: Stable postoperative changes. DATA REPOSITORY: RADIATION DOSE DELIVERED:
== END 2022-04-27 10:15 | disposition home or self-care (01) ==
LOC: DIORS 10:15
PROVIDERS: PCP Family Medicine; Referring Provider Family Medicine; Visit Provider Student in an Organized Health Care Education/Training Program
DX: S52.501D Unspecified fracture of the lower end of right radius, subsequent encounter for closed fracture with routine healing (principal); X58.XXXD Exposure to other specified factors, subsequent encounter
CPT/HCPCS: 73110

== ENCOUNTER 2022-05-04 02:21 | Outpatient (CLI) | payer MEDICARE, BC, SELFPAY ==
--- NOTE | 2022-05-04 08:30 | DI.MAMMO_ITS ---
Exam(s) MAMMO SCREENING EXAM: MAMMO SCREENING CLINICAL HISTORY: SCREENING, Z12.31. TECHNIQUE: Bilateral full field digital CC and MLO mammographic images were obtained with 3D tomosyn thesis and utilizing computer aided detection (CAD). COMPARISON: Prior mammograms were reviewed. FINDINGS: There has been no significant change in the appearance and distribution of the fibroglandular tissue which is again noted be moderately dense.. There are no CAD designations. There are no new obvious spiculated masses nor malignant appearing microcalcification groups. There is no significant architectural distortion nor skin thickening-retraction. IMPRESSION: No radiographic evidence of malignancy. BI-RADS Category 1 - Negative Breast Density - Category C - Heterogeneously dense Breast density Category C or D implies that the patient has dense breast tissue. Dense breast tissue can make it harder to find cancer on a mammogram. Dense breast tissue is also associated with an incr eased risk of breast cancer. This information about the result of the mammogram report was provided to the patient to raise their awareness. Use this report when you speak with the patient about their risks for breast cancer, which includes their family history. At that time, you may recommend additional screening tests (Ultrasoun d or MRI) as these tests may add significant information. A negative radiographic report should not delay biopsy if a dominant or clinically suspicious mass is present. Up to ten percent of cancers are not identified on mammography. A negative report may reinforce clinical impression. Adenosis and dense breasts may obscure an underlying neoplasm. False positive reports average 6 to 10%. Patient will receive a letter notifying them of these results.
== END 2022-05-04 02:41 ==
LOC: DI 02:21
PROVIDERS: PCP Family Medicine; Visit Provider Family Medicine
DX: Z12.31 Encounter for screening mammogram for malignant neoplasm of breast (principal)
CPT/HCPCS: 77063; 77067

== ENCOUNTER 2022-06-01 09:51 | Outpatient (CLI) | payer MEDICARE, BC, SELFPAY ==
--- NOTE | 2022-06-01 08:45 | DI.RAD_ITS ---
Exam(s) XR WRIST RT LIMITED EXAM: XR WRIST RT LIMITED CLINICAL HISTORY: eval R wrist ORIF. TECHNIQUE: 2D digital imaging was performed. COMPARISON: CR XR WRIST RT COMPLETE from 04/27/2022 FINDINGS: Two views: Position of the volar fixation plate distal radius is satisfactory. There has been some further heal ing. No hardware loosening. No radiographic evidence of osteomyelitis. No additional fractures. N o significant ulnar variance. Some degenerative changes again noted at the tri scaphoid joint. Scap holunate distance normal. Bone density is age-appropriate. IMPRESSION: Further healing. DATA REPOSITORY: RADIATION DOSE DELIVERED:
== END 2022-06-01 09:52 | disposition home or self-care (01) ==
LOC: DIORS 09:51
PROVIDERS: PCP Family Medicine; Referring Provider Family Medicine; Visit Provider Student in an Organized Health Care Education/Training Program
DX: S52.591D Other fractures of lower end of right radius, subsequent encounter for closed fracture with routine healing (principal); X58.XXXD Exposure to other specified factors, subsequent encounter
CPT/HCPCS: 73100

== ENCOUNTER 2022-07-16 09:07 | Outpatient (CLI) | payer MEDICARE, BC, SELFPAY ==
--- NOTE | 2022-07-16 08:30 | DI.RAD_ITS ---
Exam(s) XR WRIST RT COMPLETE EXAM: XR WRIST RT COMPLETE CLINICAL HISTORY: F/U ORIF. TECHNIQUE: 2D digital imaging was performed. COMPARISON: Prior x-rays 06/01/2022 FINDINGS: Two views. Stable appearance of the volar fixation plate and fracture site. Fracture line no longer evident. N o loosening of the hardware. No radiographic evidence of osteomyelitis. IMPRESSION: Satisfactory appearance. DATA REPOSITORY: RADIATION DOSE DELIVERED:
== END 2022-07-16 09:08 | disposition home or self-care (01) ==
LOC: DIORS 09:08
PROVIDERS: PCP Family Medicine; Referring Provider Family Medicine; Visit Provider Physician Assistant
DX: S52.591D Other fractures of lower end of right radius, subsequent encounter for closed fracture with routine healing (principal); X58.XXXD Exposure to other specified factors, subsequent encounter
CPT/HCPCS: 73110

== ENCOUNTER → 2023-05-26 05:14 | Outpatient (CLI) | payer MEDICARE, BC, SELFPAY ==
--- NOTE | 2023-05-26 | DI.MAMMO_ITS ---
Exam(s) MAMMO SCREENING EXAM: MAMMO SCREENING CLINICAL HISTORY: Z12.31 Encounter for screening mammogram for malig neop of breast. TECHNIQUE: Bilateral full field digital CC and MLO mammographic images were obtained with 3D tomosyn thesis and utilizing computer aided detection (CAD). COMPARISON: Prior mammograms were reviewed. FINDINGS: Fibroglandular tissue pattern is again noted be moderately dense. There are no CAD designations. There are no new left breast findings. In the immediate retroareolar region of the right breast there is a new 8 by 7 millimeter lobulated n odular density. Requires further imaging spot compression view and ultrasound. There are no malignant-appearing microcalcification groups in this region or elsewhere in either [address]. No new architectural distortion or skin thickening-traction. IMPRESSION: 1. No radiographic evidence of malignancy in left breast. 2. New 8 x 7 mm nodule in the immediate retroareolar region of the right breast. Spot compression vi ew and ultrasound recommended. BI-RADS Category 0 - Assessment Incomplete: Need additional imaging evaluation Breast Density - Category C - Heterogeneously dense Breast density Category C or D implies that the patient has dense breast tissue. Dense breast tissue can make it harder to find cancer on a mammogram. Dense breast tissue is also associated with an incr eased risk of breast cancer. This information about the result of the mammogram report was provided to the patient to raise their awareness. Use this report when you speak with the patient about their risks for breast cancer, which includes their family history. At that time, you may recommend additional screening tests (Ultrasoun d or MRI) as these tests may add significant information. A negative radiographic report should not delay biopsy if a dominant or clinically suspicious mass is present. Up to ten percent of cancers are not identified on mammography. A negative report may reinforce clinical impression. Adenosis and dense breasts may obscure an underlying neoplasm. False positive reports average 6 to 10%. Patient will receive a letter notifying them of these results.
== END ==
PROVIDERS: PCP Family Medicine; Visit Provider Family Medicine
DX: Z12.31 Encounter for screening mammogram for malignant neoplasm of breast (principal); R92.8 Other abnormal and inconclusive findings on diagnostic imaging of breast
CPT/HCPCS: 77063; 77067

== ENCOUNTER → 2023-05-31 05:06 | Outpatient (CLI) | payer MEDICARE, BC, SELFPAY ==
--- NOTE | 2023-05-31 14:45 | DI.MAMMO_ITS ---
Exam(s) MG MAMMO SCREEN CALL BACK UNI US BREAST RT LIMITED EXAM: MG MAMMO SCREEN CALL BACK UNI and U/S breast RT limited CLINICAL HISTORY: F/U MAMMO,NEW RT BREAST NODULE. TECHNIQUE: Craniocaudal and mediolateral oblique Full Field Digital Mammography views of the right b reast with Computer Aided Diagnosis followed by Tomosynthesis and right breast ultrasound. COMPARISON: Comparison is made with prior examinations. FINDINGS: Mammography/Tomosynthesis: Masses/Architectural Distortion: The area of concern does not persist on the additional views. No diaz spicious masses or areas of architectural distortion are seen. Microcalcifictions: No suspicious pleomorphic-type are seen. Skin Thickening/Nipple Retraction: None. Limited right breast US: Echotexture: Normal appearance of the glandular tissue. Shadowing: No suspicious foci. Cyst: None. Solid lesions: None seen. Ductal dilation: None. IMPRESSION: 1. No evidence of malignancy is noted. 2. Unless there is more urgent need, follow-up screening mammography is recommended, as per [place] [employer] guidelines. 3. The findings were discussed with the patient on the date of the examination. BI-RADS Category 1 - Negative Breast Density - Category C - Heterogeneously dense Breast density Category C or D implies that the patient has dense breast tissue. Dense breast tissue can make it harder to find cancer on a mammogram. Dense breast tissue is also associated with an incr eased risk of breast cancer. This information about the result of the mammogram report was provided to the patient to raise their awareness. Use this report when you speak with the patient about their risks for breast cancer, which includes their family history. At that time, you may recommend additional screening tests (Ultrasoun d or MRI) as these tests may add significant information. A negative radiographic report should not delay biopsy if a dominant or clinically suspicious mass is present. Up to ten percent of cancers are not identified on mammography. A negative report may reinforce clinical impression. Adenosis and dense breasts may obscure an underlying neoplasm. False positive reports average 6 to 10%. Patient will receive a letter notifying them of these results.
== END ==
PROVIDERS: PCP Family Medicine; Visit Provider Family Medicine
DX: R92.8 Other abnormal and inconclusive findings on diagnostic imaging of breast (principal); Z12.31 Encounter for screening mammogram for malignant neoplasm of breast
CPT/HCPCS: 76642; 77063; 77067

== ENCOUNTER 2024-06-22 00:26 | Outpatient (CLI) | payer MEDICARE, BC, SELFPAY ==
--- NOTE | 2024-06-22 | DI.MAMMO_ITS ---
Exam(s) MAMMO SCREENING EXAM: MAMMO SCREENING CLINICAL HISTORY: Z12.31 Screening. TECHNIQUE: Bilateral full field digital CC and MLO mammographic images were obtained with 3D tomosyn thesis and utilizing computer aided detection (CAD). COMPARISON: Prior mammograms were reviewed. FINDINGS: The fibroglandular tissue pattern is again noted to be moderately dense. No new right breast findings. In the left breast on the 3D MLO view there is a suggestion of a nodular density measuring 6 x 5 mm l ocated 4 cm in from the nipple. Spot compression view recommended. There are no malignant-appearing microcalcification groups in this region nor elsewhere in either [place] ast. There is no significant architectural distortion nor skin thickening-retraction. IMPRESSION: 1. No radiographic evidence of malignancy in right breast. 2. There is a 6 x 5 mm left breast nodular density. Spot compression MLO view and breast ultrasound recommended. BI-RADS Category 0 - Incomplete: Need additional imaging evaluation Breast Density - Category C - The breast are heterogeneously dense, which may obscure small masses. Breast density Category C or D implies that the patient has dense breast tissue. Dense breast tissue can make it harder to find cancer on a mammogram. Dense breast tissue is also associated with an incr eased risk of breast cancer. This information about the result of the mammogram report was provided to the patient to raise their awareness. Use this report when you speak with the patient about their risks for breast cancer, which includes their family history. At that time, you may recommend additional screening tests (Ultrasoun d or MRI) as these tests may add significant information. A negative radiographic report should not delay biopsy if a dominant or clinically suspicious mass is present. Up to ten percent of cancers are not identified on mammography. A negative report may reinforce clinical impression. Adenosis and dense breasts may obscure an underlying neoplasm. False positive reports average 6 to 10%. Patient will receive a letter notifying them of these results.
== END 2024-06-22 00:46 ==
LOC: DI 00:26
PROVIDERS: PCP Family Medicine; Visit Provider Family Medicine
DX: Z12.31 Encounter for screening mammogram for malignant neoplasm of breast (principal); R92.333 Mammographic heterogeneous density, bilateral breasts
CPT/HCPCS: 77063; 77067

== ENCOUNTER 2024-06-30 00:25 | Outpatient (CLI) | payer MEDICARE, BC, SELFPAY ==
--- NOTE | 2024-06-30 | DI.US_ITS ---
Exam(s) MG MAMMO SCREEN CALL BACK UNI US BREAST LT COMPLETE EXAM: MG MAMMO SCREEN CALL BACK UNI-LEFT AND COMPLETE LEFT BREAST ULTRASOUND CLINICAL HISTORY: 6x5 MM nodular density Lt breast R92.8 ABNL mammo. TECHNIQUE: Unilatera LEFT BREAST l spot mammographic images obtained with 3D tomosynthesisand utiliz ing computer aided detection (CAD). . Complete LEFT breast Ultrasound was also performed, including all 4 quadrants, the retroareolar regio n, and the ipsilateral axilla. COMPARISON: Prior mammograms were reviewed. This additional imaging was performed due to findings described on the recent screening mammogram of 06/22/2024. FINDINGS: DIAGNOSTIC MAMMOGRAM: Additional mammographic views performed todayrender this area less concerning. COMPLETE LEFT BREAST ULTRASOUND: Ultrasound performed today reveals no evidence of solid nor significant cystic lesions in all 4 quadr ants of the left breast. Scanning of the left axilla is negative for significant adenopathy.. IMPRESSION: 1. No radiographic evidence of malignancy. 2. Negative complete left breast ultrasound Appropriate follow-up is repeat left breast MAMMOGRAM 6 months to ensure stability. The patient was informed of these findings and recommendations by myself prior to leaving the [facility] ent today. BI-RADS Category 3 - 6 month - Probably Benign Finding: Recommend follow-up mammography in 6 months Breast Density - Category C - The breast are heterogeneously dense, which may obscure small masses. Breast density Category C or D implies that the patient has dense breast tissue. Dense breast tissue can make it harder to find cancer on a mammogram. Dense breast tissue is also associated with an incr eased risk of breast cancer. This information about the result of the mammogram report was provided to the patient to raise their awareness. Use this report when you speak with the patient about their risks for breast cancer, which includes their family history. At that time, you may recommend additional screening tests (Ultrasoun d or MRI) as these tests may add significant information. A negative radiographic report should not delay biopsy if a dominant or clinically suspicious mass is present. Up to ten percent of cancers are not identified on mammography. A negative report may reinforce clinical impression. Adenosis and dense breasts may obscure an underlying neoplasm. False positive reports average 6 to 10%. Patient will receive a letter notifying them of these results.
== END 2024-06-30 00:45 ==
LOC: DI 00:25
PROVIDERS: PCP Family Medicine; Visit Provider Family Medicine
DX: Z12.31 Encounter for screening mammogram for malignant neoplasm of breast (principal); R92.8 Other abnormal and inconclusive findings on diagnostic imaging of breast
CPT/HCPCS: 76642; 77063; 77067

== ENCOUNTER → 2025-01-03 02:12 | Outpatient (CLI) | payer MEDICARE, BC, SELFPAY ==
--- NOTE | 2025-01-03 | DI.MAMMO_ITS ---
Exam(s) MG MAMMO DIAGNOSTIC UNI EXAM: MG MAMMO DIAGNOSTIC UNI LEFT CLINICAL HISTORY: R92.8 6 Month f/u abn mammo LT breast. TECHNIQUE: Unilateral LEFT BREAST CC AND MLO mammographic images were obtained with 3D tomosynthesis technique and utilizing computer aided detection (CAD). COMPARISON: Prior mammograms were reviewed, as was the breast ultrasound of 06/30/2024 FINDINGS: DIAGNOSTIC LEFT BREAST MAMMOGRAM: Previously described nodular densities actually less evident on the present study, further evidence that it was benign. There are no new spiculated masses nor malignant-appearing microcalcification groups in the left breast. No new architectural distortion or skin thickening-retraction. Repeat ultrasound is not required. IMPRESSION: No radiographic evidence of malignancy in the left breast Appropriate follow-up is keep this patient on her yearly mammogram schedule, this implying that her next bilateral mammogram would be in 6 months. The patient was informed of the findings and follow-up recommendations by myself prior to leaving the department today. BI-RADS Category 2 - Benign Findings Breast Density - Category C - The breast are heterogeneously dense, which may obscure small masses. Breast density Category C or D implies that the patient has dense breast tissue. Dense breast tissue can make it harder to find cancer on a mammogram. Dense breast tissue is also associated with an increased risk of breast cancer. This information about the result of the mammogram report was provided to the patient to raise their awareness. Use this report when you speak with the patient about their risks for breast cancer, which includes their family history. At that time, you may recommend additional screening tests (Ultrasound or MRI) as these tests may add significant information. A negative radiographic report should not delay biopsy if a dominant or clinically suspicious mass is present. Up to ten percent of cancers are not identified on mammography. A negative report may reinforce clinical impression. Adenosis and dense breasts may obscure an underlying neoplasm. False positive reports average 6 to 10%. Patient will receive a letter notifying them of these results.
== END ==
LOC: DI 02:12
PROVIDERS: PCP Family Medicine; Visit Provider Family Medicine
DX: Z12.31 Encounter for screening mammogram for malignant neoplasm of breast (principal); R92.8 Other abnormal and inconclusive findings on diagnostic imaging of breast
CPT/HCPCS: 77061; 77065; G0279